=== PATIENT | male | born 1965 | race Two or more races ===

== ENCOUNTER 2016-11-08 18:29 | Emergency (ER) | payer SELFPAY ==
[~2016-11-08] VITALS: Ht 167.6 cm; Wt 65.8 kg
[2016-11-08 18:33] VITALS: BP 128/91
[2016-11-08] MEDS ORDERED: IBUPROFEN 600 MG TAB PO ONE (23:00)
== END 2016-11-08 23:10 | disposition home or self-care (01) ==
LOC: ER 18:29
DX: S13.9XXA Sprain of joints and ligaments of unspecified parts of neck, initial encounter (principal); R51 Headache; Z01.818 Encounter for other preprocedural examination; V49.40XA Driver injured in collision with unspecified motor vehicles in traffic accident, initial encounter; Y93.89 Activity, other specified; Y99.8 Other external cause status; Y92.89 Other specified places as the place of occurrence of the external cause
CPT/HCPCS: 70450; 72125